=== PATIENT | male | born 1995 | race Two or more races ===

== ENCOUNTER 2021-03-18 18:27 | Emergency (ER) | payer OTHER ==
[~2021-03-18] VITALS: Ht 175.3 cm; Wt 111.1 kg
[2021-03-18] MEDS ORDERED: ACETAMINOPHEN 500 MG TAB PO ONE (19:45)
[2021-03-18] MEDS ORDERED: SODIUM CHLORIDE 0.9% 1,000 ML IV ONE (20:00)
[2021-03-18 20:37] LABS: Albumin 4.1 g/dL (3.4-5.0); Calcium 9.7 mg/dL (8.5-10.1); Potassium 4.2 mmol/L (3.5-5.1)
[2021-03-18 20:38] LABS: Basophils # (auto) 0.3 10 ^3/uL (0-0.2); Basophils % (auto) 1.4 % (0.0-2.0); Eosinophils # (auto) 0.2 10 ^3/uL (0-0.8); Eosinophils % (auto) 1.2 % (0.0-7.0); Hematocrit 47.7 % (41.0-53.0); Hemoglobin 16.3 g/dL (13.5-17.5); Lymphocytes # (auto) 1.8 10 ^3/uL (0.4-5.4); Lymphocytes % (auto) 9.9 % (10.0-50.0); Mean Corpuscular Hemoglobin 29.6 pg (28.0-32.0); Mean Corpuscular Hgb Conc. 34.1 g/dL (32.0-36.0); Mean Corpuscular Volume 86.8 fL (80.0-100.0); Monocytes # (auto) 1.5 10 ^3/uL (0-1.3); Neutrophils # (auto) 14.6 10 ^3/uL (1.6-8.6); Neutrophils % (auto) 79.5 % (37.0-80.0); Red Cell Distribution Width 12.8 % (11.8-14.3); White Blood Cell 18.4 10^3/uL (4.4-10.8)
[2021-03-18 20:42] LABS: Bilirubin, Total 0.7 mg/dL (0.2-1.0); Total Protein 9.3 g/dL (6.4-8.2)
[2021-03-18] MEDS ORDERED: VANCOMYCIN 1,500 MG in D5W 5% 250 ML IV ONE (21:45)
[2021-03-18] MEDS ORDERED: PIPERACILLIN-TAZO 4.5GM 100 ML IV ONE (21:45)
[2021-03-18] MEDS ORDERED: IOHEXOL 300 MG/ML 100ML BOTTLE IJ ONE (23:28)
[2021-03-19 00:54] VITALS: BP 112/60
== END 2021-03-19 00:53 | disposition home or self-care (01) ==
LOC: EEVIPCON 18:29 → ER 18:29
DX: L02.13 Carbuncle of neck (principal); L02.12 Furuncle of neck
CPT/HCPCS: 36415; 70491; 80053; 83605; 85025; 87040; 96365; 96366; 96368; 99285; J2543; J3370; J7030; J7060; Q9967